=== PATIENT | female | born 1970 | race Caucasian/White ===

== ENCOUNTER 2016-12-10 19:45 | Emergency (ER) | payer OTHER, MEDICARE ==
[~2016-12-10 19:45] MED LIST: ASPIRIN EC81 M1 PO; AZITHROMYCIN250 M1 PO; CIPRO 500MG (E500 MG PO; CIPRO500 M1 PO; CRESTOR10 M1 PO; DOXYCYCLINE MO100 M2 PO; MEDROL4 M2 PO; METFORMIN HCL500 M3 PO; METOPROLOL SUC100 M2 PO; MOTRIN 800MG T800 MG PO; NEURONTIN100 MG PO; NEURONTIN300 M1 PO; NORCO 325 MG-51 TAB PO; OMEPRAZOLE D/R20 MG PO; OXYCODONE HCL5 M1 PO; PANTOPRAZOLE SO40 M1 PO; PORTIA-28 TABL1 EACH PO; PROAIR HFA8.5 GM INH; QUASENSE 30 MCG1 TAB PO; TRAZODONE HCL50 M1 PO; VITAMIN B125000 MC1 PO; ZOFRAN ODT4 MG PO
[2016-12-10] MEDS ORDERED: LISINOPRIL10 M1 PO (20:16)
[2016-12-10] MEDS ORDERED: HYDROXYZINE HCL25 M2 PO (20:16)
[2016-12-10] MEDS ORDERED: COLACE100 M1 PO (20:17)
[2016-12-10] MEDS ORDERED: IBUPROFEN IB200 M1 PO (20:17)
[2016-12-10] MEDS ORDERED: MULTI-DAY VITA1 EACH PO (20:18)
[2016-12-10] MEDS ORDERED: SUPER B COMPLE150 MG PO (20:18)
[2016-12-10] MEDS ORDERED: CINNAMON500 M1 PO (20:18)
--- NOTE | 2016-12-10 20:36 | ED CARDIAC/CP/PALPITATIONS ---
History of Present Illness General Chief Complaint: Chest Pain Stated Complaint: CHEST PAIN/LEFT ARM NUMBNESS x2 DAYS Source: patient, old records Exam Limitations: no limitations Vital Signs & Intake/Output Vital Signs & Intake/Output Vital Signs Date Time Temp Pulse Resp B/P Pulse O2 O2 Flow FiO2 Ox Delivery Rate 12/10 2158 98 12/10 2152 97.0 67 20 113/65 98 Room Air 12/10 1953 97.9 114 156/94 98 Room Air Allergies Coded Allergies: celecoxib (From CELEBREX) (HEART PALPITATIONS, SWEATING, FELT LIKE "STROKE" 11/19) Reconcile Medications Albuterol Sulfate (Proair Hfa) 8.5 GM HFA.AER.AD 2 PUF INH Q4-6 PRN PRN shortness of breath Amoxicillin 875 MG TABLET 1 TAB PO BID bronchitis Aspirin (Ecotrin*) 81 MG TABLET.DR 1 TAB PO DAILY HEART/BLOOD (Reported) Cinnamon Bark (Cinnamon) 500 MG CAPSULE 2 CAP PO BID SUPPLEMENT (Reported) Cyanocobalamin (Vitamin B-12) (Vitamin B12) 5,000 MCG TAB.RAPDIS 1 TAB PO Wednesday SUPPLEMENT (Reported) Docusate Sodium (Colace) 100 MG CAPSULE 1 CAP PO BID GI (Reported) Gabapentin (Neurontin) 300 MG CAPSULE 1 CAP PO BID NEUROPATHY (Reported) Hydroxyzine HCl 25 MG TABLET 1 TAB PO DAILY ANXIETY/SLEEP (Reported) Ibuprofen (Ibuprofen Ib) 200 MG TABLET 2-3 TAB PO QPM PAIN/INFLAMMATION ( Reported) Lisinopril 10 MG TABLET 1 TAB PO DAILY BP (Reported) Metformin HCl 500 MG TABLET 1 TAB PO DAILY DIABETES (Reported) Metoprolol Succinate 100 MG TAB.ER.24H 1 TAB PO DAILY HEART (Reported) Multivitamin (Multi-Day Vitamins) 1 EACH TABLET 1 TAB PO DAILY SUPPLEMENT ( Reported) Pantoprazole Sodium 40 MG TABLET.DR 1 TAB PO DAILY GI (Reported) Rosuvastatin Calcium (Crestor) 10 MG TABLET 1 TAB PO DAILY CHOLESTEROL ( Reported) Vitamin B Complex & Vit C No.4 (Super B Complex) (Unknown Strength) TABLET ( Unknown Dose) PO DAILY SUPPLEMENT (Reported) Core Measure Meds Pre-Hospital aspirin Triage Note: PER PT X 2 DAYS PAIN TO CENTER OF CHEST FEELS LIKE SOMEONE IS GIVING ME A NOOGIE IN MY CHEST NO SOB, NO DIAPHORESIS HX OF MOTHER IN 40'S OF [place] ALSO BACK PAIN TO CENTER OF BACK Triage Nurses Notes Reviewed? yes Onset: yesterday Duration: day(s):, continues in ED, intermittent Timing: recent history Quality/Severity: moderate, aching, pressure Location: substernal Radiation: no radiation Activities at Onset: none Prior Chest Pain/Card Workup: non-cardiac, echocardiography, thallium scan Modifying Factors: Worsens With: breathing. Nitro Today/Relief: no nitro taken today Aspirin Today: 81 mg x 1, provided at home Associated Symptoms: fatigue LMP (ages 10-50): unknown : No Patient currently breastfeeds: No HPI: 1 day prior to admission patient complains of punching sensation chest nonradiating episodic lasting minutes resolving spontaneously mild to moderate in severity. She denies fever chills nausea vomiting diarrhea abdominal pain shortness of breath headache dysuria rash bleeding cough . She reports having similar symptoms but with more severe pain turning out to be pneumonia diagnosed on CT scan of the chest. Past History Travel History Traveled to [place] past 21 day No Medical History Any Pertinent Medical History? see below for history Neurological: NONE, LYME EENT: NONE Cardiovascular: hypertension, hyperlipidemia Respiratory: asthma Gastrointestinal: GERD Hepatic: NONE Renal: NONE Musculoskeletal: SPINA BIFIDA Psychiatric: anxiety, depression, insomnia Endocrine: NIDDM Blood Disorders: NONE Cancer(s): NONE THERAPIST ASST/Reproductive: PCOS History of MRSA: No History of VRE: No History of CDIFF: No Surgical History Surgical History: SPINA BIFIDA RELATED SX MENISCUS REPAIRS Psychosocial History Who do you live with Family Services at Home None What is your primary language Citizen Of [place] Tobacco Use: Never used Family History Hx Contributory? No Review of Systems Review of Systems Constitutional: Reports: no symptoms. EENTM: Reports: no symptoms. Respiratory: Reports: no symptoms. Cardiovascular: Reports: see HPI, chest pain. GI: Reports: no symptoms. Genitourinary: Reports: no symptoms. Musculoskeletal: Reports: no symptoms. Skin: Reports: no symptoms. Neurological/Psychological: Reports: no symptoms. Hematologic/Endocrine: Reports: no symptoms. Immunologic/Allergic: Reports: no symptoms. All Other Systems: Reviewed and Negative Physical Exam Physical Exam General Appearance: well developed/nourished, alert, awake, anxious, mild distress, obese Head: atraumatic, normal appearance Eyes: Bilateral: normal appearance, PERRL, EOMI. Ears, Nose, Throat: normal pharynx, normal ENT inspection, hearing grossly normal Neck: normal inspection, supple, full range of motion, no midline tenderness Respiratory: normal breath sounds, chest non-tender, no respiratory distress, quiet respiration, lungs clear Cardiovascular: regular rate/rhythm, normal peripheral pulses, norml femoral pulses equa Peripheral Pulses: 4+ carotid (R), 4+ carotid (L) Gastrointestinal: normal bowel sounds, soft, non-tender, no organomegaly Back: normal inspection, normal range of motion, no vertebral tenderness Extremities: normal inspection, normal capillary refill, normal range of motion, no edema Neurologic/Psych: no motor/sensory deficits, awake, alert, oriented x 3, normal gait, normal mood/affect, emulsification operator II-XII nml as tested Reflexes: 2+: bicep (R), bicep (L). Skin: intact, normal color, warm/dry Lymphatic: no anterior cervical carmita Core Measures ACS in differential dx? No Severe Sepsis Present: No Septic Shock Present: No Progress Differential Diagnosis: AMI, costochondritis, hyperkalemia, hypovolemia, hyperthyroid, musculoskeletal pain, pneumonia Plan of Care: Orders Procedure Date/time Status TSH REFLEX 12/10 2010 Complete TROPONIN LEVEL 12/10 2010 Complete D-DIMER 12/10 2010 Complete COMPREHENSIVE METABOLIC PANEL 12/10 2010 Complete CBC WITHOUT DIFFERENTIAL 12/10 2010 Complete EKG 12/10 1949 Active Laboratory Tests 12/10/16 2030: Anion Gap 13, Estimated GFR > 60, BUN/Creatinine Ratio 16.7, Glucose 102 H, Calcium 9.9, Total Bilirubin 0.7, AST 24, ALT 51, Alkaline Phosphatase 69, Troponin I < 0.01, Total Protein 7.6, Albumin 4.4, Globulin 3.2, Albumin/ Globulin Ratio 1.4, TSH &T3 &Free T4 Intrp 3.530, D-Dimer < 200, CBC w Diff NO MAN DIFF REQ, RBC 5.32, MCV 82.4, MCH 27.5, RDW 13.9, MPV 8.7, Gran % 58.7, Lymphocytes % 29.7, Monocytes % 6.2, Eosinophils % 4.6, Basophils % 0.8, Absolute Granulocytes 6.7 H, Absolute Lymphocytes 3.4, Absolute Monocytes 0.7 H, Absolute Eosinophils 0.5, Absolute Basophils 0.1, PUBS MCHC 33.3 Diagnostic Imaging: Viewed by Me: Radiology Read. Discussed w/RAD: Radiology Read. CXR Impression: no acute abnormality, no infiltrates Initial ED EKG: normal axis, normal intervals, normal p-waves, normal QRS complex, normal sinus rhythm, no ST T wave changes Rhythm Strip: normal sinus rhythm Departure Departure Time of Disposition: 2203 Disposition: HOME OR SELF CARE Condition: Stable Clinical Impression Primary Impression: Chest pain syndrome Secondary Impressions: Atelectasis Referrals: NIYA SIDHU DO (PCP/Family) Additional Instructions: Motrin 2-4 tabs evdry 6 hours as needed for pain Departure Forms: Customer Survey General Discharge Information Prescriptions: Current Visit Scripts Amoxicillin 1 TAB PO BID #20 TAB Critical Care Note Critical Care Note Critical Care Time: non-applicable
[2016-12-10 20:38] LABS: ABSOLUTE BASOPHIL COUNT 0.1 /CUMM (0.0-0.2); ABSOLUTE EOSINOPHIL COUNT 0.5 /CUMM (0.0-0.7); ABSOLUTE GRANULOCYTE CT 6.7 /CUMM (1.4-6.5); ABSOLUTE LYMPH COUNT 3.4 /CUMM (1.2-3.4); ABSOLUTE MONOCYTE COUNT 0.7 /CUMM (0.10-0.60); BASOPHIL % 0.8 % (0.0-2.0); EOSINOPHIL % 4.6 % (0-5); GRANULOCYTE % 58.7 % (42.2-75.2); HEMATOCRIT 43.9 % (37-47); MEAN CORPUSCULAR HGB 27.5 PG (27.0-31.0); MEAN CORPUSCULAR HGB CONC 33.3 G/DL (33.0-37.0); MEAN CORPUSCULAR VOLUME 82.4 FL (81.0-99.0); MEAN PLATELET VOLUME 8.7 FL (7.4-10.4); PLATELET COUNT 217 /CUMM (130-400); RBC DISTRIBUTION WIDTH 13.9 % (11.5-14.5); RED BLOOD CELL CT 5.32 /CUMM (4.20-5.40); WHITE BLOOD CELL COUNT 11.5 /CUMM (4.8-10.8)
--- NOTE | 2016-12-10 20:47 | RADIOLOGY REPORT ---
EXAMINATION: XR PORTABLE CHEST CLINICAL INFORMATION: Chest pain COMPARISON: Multiple chest x-rays most recent prior dated 03/08/2016 TECHNIQUE: Portable AP view of the chest was obtained. FINDINGS: Stable cardiomediastinal silhouette. Minor streaky infiltrate or atelectasis noted in the left base. Right lung is clear. Bony thorax is intact.. IMPRESSION: Minor streaky left basilar infiltrate or atelectasis.
[2016-12-10] MEDS ORDERED: AMOXICILLIN875 M1 PO (22:05)
[2016-12-10 22:29] VITALS: BP 122/74
== END 2016-12-10 22:30 ==
LOC: ERH 19:45
PROVIDERS: Emergency Medicine
DX: R07.1 Chest pain on breathing (principal); J98.11 Atelectasis; R20.0 Anesthesia of skin; I10 Essential (primary) hypertension; E11.9 Type 2 diabetes mellitus without complications
CPT/HCPCS: 1263; 93005; 93010; 96374; 96375; J0696; J1885